=== PATIENT | male | born 1995 | race Caucasian/White ===

== ENCOUNTER 2016-09-27 18:59 | Emergency (ER) | payer BC ==
[2016-09-27 19:56] VITALS: BP 146/81
[2016-09-27] MEDS ORDERED: Acyclovir CAP* 200 MG PO ONE ×2 (21:04→21:08)
[2016-09-27] MEDS ORDERED: predniSONE TAB* 20 MG PO ONE (21:04)
--- NOTE | 2016-09-27 21:15 | UC ---
UC General HPI - HPI Summary HPI Summary: onset several days of burning sensation right side of his tongue. Tonight, developed some odd sensation in his jaw, with the realization that he cannot lift his right eyebrow and has mild facial droop. Has mild headache and low grade fever. - History of Current Complaint Chief Complaint: UCDentalProblem Stated Complaint: JAW PAIN Time Seen by Provider: 09/27/16 20:38 Hx Obtained From: Patient, Family/Print Buyer - here with his girlfriend. Onset/Duration: Gradual Onset, Lasting Hours - approximately 6 Onset Severity: Moderate Current Severity: Moderate Associated Signs & Symptoms: Positive: Headache - Allergy/Home Medications Allergies/Adverse Reactions: Allergies Allergy/AdvReac Type Severity Reaction Status Date / Time Amoxicillin Allergy Unknown Unknown Verified 12/18/15 14:28 Reaction Details Cats Allergy Eyes Uncoded 09/27/16 19:48 Itchy/Swollen/Red/Watery seasonal allergies Allergy Eyes Uncoded 12/18/15 14:28 Itchy/Swollen/Red/Watery Home Medications: Home Medications Naproxen [Naproxen 500 MG TABS] 2 tab PO Q12HR PRN 09/27/16 [History Confirmed 09/27/16] PMH/Surg Hx/FS Hx/Imm Hx Endocrine History Of: Reports: Thyroid Disease Cardiovascular History Of: Denies: Pacemaker/ICD Respiratory History Of: Reports: Asthma Psychological History Of: Reports: Anxiety - long history of anxiety disorder, uses occasional alprazolam - Surgical History Surgical History: Yes Surgery Procedure, Year, and Place: left hip impingement 01/30/13. MAY 2015 HIP SURGERY-LEFT - Family History Known Family History: Positive: None - Social History Occupation: Employed Full-time Lives: Alone Alcohol Use: Weekly Alcohol Amount: 3 days a week Substance Use Type: None Smoking Status (MU): Never Smoked Tobacco Review of Systems Constitutional: Negative Skin: Negative Eyes: Negative ENT: Negative Respiratory: Negative Cardiovascular: Negative Gastrointestinal: Negative Genitourinary: Negative Motor: Negative Neurovascular: Negative Musculoskeletal: Negative Neurological: Headache, Other - facial weakness. Psychological: Negative All Other Systems Reviewed And Are Negative: Yes Physical Exam Triage Information Reviewed: Yes Appearance: Well-Appearing, Thin - anxious. Vital Signs: Initial Vital Signs Temp 99.8 F 09/27/16 19:50 Pulse 98 09/27/16 19:50 Resp 16 09/27/16 19:50 BP 146/81 09/27/16 19:50 Pulse Ox 99 09/27/16 19:50 Eyes: Positive: Conjunctiva Clear, Other: - No lid weakness. ENT: Positive: Pharynx normal, Other: - tongue with mild erythema lateral border. Dental Exam: Normal Neck: Positive: Supple, Nontender, No Lymphadenopathy Respiratory: Positive: Lungs clear, Normal breath sounds Cardiovascular: Positive: RRR, No Murmur Neurological: Positive: Alert, Muscle Tone Normal, Other: - no pronator drift. Normal strength, normal gait. Cannot raise right eyebrow, very mild loss of nasolabial fold. Psychological: Positive: Other: - anxiety discussed. He admits to struggling with this and "freaks out". Skin Exam: Normal Course/Dx - Course Course Of Treatment: prednisone and antiviral for treatment of Anthony's palsy. - Differential Dx - Multi-Symptom Differential Diagnoses: Other - Anthony's palsy Provider Diagnoses: Anthony palsy Discharge - Discharge Plan Condition: Stable Disposition: HOME Prescriptions: Prednisone 2 tab PO BID #26 tab Valacyclovir HCl [Valtrex] 500 mg PO BID #10 tab Patient Education Materials: Anthony Palsy (ED) Additional Instructions: As discussed, early treatment with steroids and antivirals can fully reverse the muscle weakness. I would like you to have a re-assessment with your primary care tomorrow or Saturday in order to confirm that you are improving, and decide if additional assessment is needed.
== END 2016-09-27 21:28 | disposition home or self-care (01) ==
LOC: UCCORT 18:59
DX: G51.0 Bell's palsy (principal); R51 Headache; Z88.1 Allergy status to other antibiotic agents
CPT/HCPCS: 99213; A9270-GY; G0463; J7512

== ENCOUNTER 2017-07-06 16:23 | Emergency (ER) | payer BC ==
--- NOTE | 2017-07-06 17:09 | UC ---
Throat Pain/Nasal Christopher HPI - HPI Summary HPI Summary: 22 year old male presents with sinus pressure and congestion. - History of Current Complaint Stated Complaint: SINUS Time Seen by Provider: 07/06/17 17:08 Hx Obtained From: Patient Onset/Duration: Sudden Onset Severity: Moderate Pain Scale Used: 0-10 Numeric - 5 Cough: Nonproductive Associated Signs & Symptoms: Positive: Dysphagia - Allergies/Home Medications Allergies/Adverse Reactions: Allergies Allergy/AdvReac Type Severity Reaction Status Date / Time Amoxicillin Allergy Unknown Unknown Verified 07/06/17 17:14 Reaction Details Cats Allergy Eyes Uncoded 07/06/17 17:14 Itchy/Swollen/Red/Watery seasonal allergies Allergy Eyes Uncoded 07/06/17 17:14 Itchy/Swollen/Red/Watery Home Medications: Home Medications Phenylephrine W/ Acetaminophen [Sinus Pressure/Pain/Adult 5-325 mg] 2 tab PO Q4HR PRN 07/06/17 [History Confirmed 07/06/17] Valacyclovir HCl [Valtrex] 500 mg PO BID PRN 07/06/17 [History Confirmed ] PMH/Surg Hx/FS Hx/Imm Hx Previously Healthy: Yes - Surgical History Surgical History: Yes Surgery Procedure, Year, and Place: left hip impingement 01/30/13. MAY 2015 HIP SURGERY-LEFT - Family History Known Family History: Positive: None - Social History Alcohol Use: Weekly Alcohol Amount: 3 days a week Substance Use Type: None Smoking Status (MU): Never Smoked Tobacco Review of Systems Constitutional: Negative Skin: Negative Eyes: Negative ENT: Nasal Discharge, Sinus Congestion, Sinus Pain/Tenderness Respiratory: Cough Cardiovascular: Negative Gastrointestinal: Negative Genitourinary: Negative Motor: Negative Neurovascular: Negative Musculoskeletal: Negative Neurological: Negative Psychological: Negative All Other Systems Reviewed And Are Negative: Yes Physical Exam Triage Information Reviewed: Yes Vital Signs Reviewed: Yes Eye Exam: Normal ENT: Positive: Pharyngeal erythema, Nasal congestion, Nasal drainage, Sinus tenderness Dental Exam: Normal Neck exam: Normal Neck: Positive: 1 Respiratory Exam: Normal Cardiovascular Exam: Normal Abdominal Exam: Normal Musculoskeletal Exam: Normal Neurological Exam: Normal Psychological Exam: Normal Skin Exam: Normal Throat Pain/Nasal Course/Dx - Differential Dx/Diagnosis Provider Diagnoses: sinusitis Discharge - Discharge Plan Condition: Stable Disposition: HOME Prescriptions: Azithromyxin GHAZALA (NF) [Z-Ghazala (Zithromax) 250 mg tabs #6] 2 tab PO .TODAY, THEN 1 DAILY #6 tab Methylprednisolone [Medrol Dosepak 4 MG*] 4 mg PO .SEE GHAZALA INSTRUCTION #21 tab Patient Education Materials: Sinusitis (ED) Referrals: Leila Lopez PA [Primary Care Provider] -
[2017-07-06 17:14] VITALS: BP 131/80
== END 2017-07-06 17:40 | disposition home or self-care (01) ==
LOC: UCCORT 16:23
DX: J32.9 Chronic sinusitis, unspecified (principal); Z88.0 Allergy status to penicillin; Z91.048 Other nonmedicinal substance allergy status
CPT/HCPCS: 99212; G0463

== ENCOUNTER 2017-08-02 17:19 | Emergency (ER) | payer BC | END 2017-08-02 18:09 | disposition left against medical advice (07) | LOC: UCCORT 17:19 | DX: J02.9 Acute pharyngitis, unspecified (principal); Z53.21 Procedure and treatment not carried out due to patient leaving prior to being seen by health care provider ==

== ENCOUNTER 2019-04-06 14:20 | Emergency (ER) | payer BC ==
[2019-04-06 15:30] VITALS: BP 140/82
--- NOTE | 2019-04-06 16:10 | UC ---
General HPI - HPI Summary HPI Summary: 24-year-old male comes in with chief complaint of lesions on his tongue. A week ago he noticed something on the left side of his tongue is swollen its tender. Then noticed some the tip of his tongue and his activities tongue feels numb. Similar lesion to the left sided lesion on the right side of his tongue. 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 Normally he gets an ulceration on his upper lip. Has had a sore throat. No fevers no chills feels well otherwise. 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 Patient noticed some redness and swelling on the right third MCP. It's tender to palpation. No decreased range of motion. - History of Current Complaint Chief Complaint: UCSkin Stated Complaint: TONGUE COMPLAINT Time Seen by Provider: 04/06/19 15:46 Pain Intensity: 3 - Allergy/Home Medications Allergies/Adverse Reactions: Allergies Allergy/AdvReac Type Severity Reaction Status Date / Time amoxicillin Allergy Hives Verified 04/06/19 15:32 Cats Allergy Eyes Uncoded 07/06/17 17:14 Itchy/Swollen/Red/Watery seasonal allergies Allergy Eyes Uncoded 07/06/17 17:14 Itchy/Swollen/Red/Watery Home Medications: Home Medications Albuterol HFA INHALER* [Ventolin HFA Inhaler*] 2 puff INH Q6H PRN 04/06/19 [ History Confirmed 04/06/19] Fexofenadine (NF) [Daya (NF)] 60 mg PO DAILY 04/06/19 [History Confirmed 01/16] Valacyclovir HCl [Valacyclovir] 500 mg PO DAILY 04/06/19 [History Confirmed 01/16] PMH/Surg Hx/FS Hx/Imm Hx Previously Healthy: Yes - HSV - Surgical History Surgical History: Yes Surgery Procedure, Year, and Place: left hip impingement 01/30/13. MAY 2015 HIP SURGERY-LEFT - Family History Known Family History: Positive: None - Social History Alcohol Use: Weekly Alcohol Amount: 3 days a week Substance Use Type: None Smoking Status (MU): Never Smoked Tobacco - Immunization History Most Recent Influenza Vaccination: 05/2017 Review of Systems All Other Systems Reviewed And Are Negative: Yes Constitutional: Positive: Negative Skin: Positive: Other - SEE HPI Eyes: Positive: Negative ENT: Positive: Sore Throat Respiratory: Positive: Negative Cardiovascular: Positive: Negative Gastrointestinal: Positive: Negative Motor: Positive: Negative Neurovascular: Positive: Negative Musculoskeletal: Positive: Other: - SEE HPI Neurological: Positive: Negative Psychological: Positive: Negative Is Patient Immunocompromised?: No Physical Exam Triage Information Reviewed: Yes Appearance: Well-Appearing, No Pain Distress Vital Signs: Initial Vital Signs Temp 98.2 F 04/06/19 15:27 Pulse 108 04/06/19 15:27 Resp 20 04/06/19 15:27 BP 140/82 04/06/19 15:27 Pulse Ox 100 04/06/19 15:27 Vital Signs Reviewed: Yes Eye Exam: Normal Eyes: Positive: Conjunctiva Clear ENT: Positive: Other - Tonsils are 2+ bilaterally they're symmetric. Patient has ulcerations on the lateral aspects of his tongue which have an erythematous base. Neck: Positive: Supple, No Lymphadenopathy Respiratory: Positive: Lungs clear, Normal breath sounds, No respiratory distress Cardiovascular: Positive: RRR Musculoskeletal: Positive: Strength Intact, ROM Intact Neurological: Positive: Alert Psychological: Positive: Age Appropriate Behavior Skin: Positive: Other - On the right third MCP. There is some erythema that's mildly tender to palpation appears potentially to have some fluctuance. Finger has full range of motion full-strength normal sensation normal capillary refill. Course/Dx - Course Course Of Treatment: The lesions on the tongue we'll treat by increasing the dosing of the valacyclovir. Also patient reports that he has been drinking alcohol every night for at least 2 weeks. I recommended decreasing alcohol intake and taking multiple vitamins to include B vitamins. Patient's from a with Dr. Isaacs he would like to follow-up with him for ENT. For the right knuckles potential for superficial infection. Patient noted to have an allergy to amoxicillin therefore we'll treat with doxycycline. Is given a follow-up with orthopedics if not completely improved. - Diagnoses Provider Diagnosis: Tongue lesion, Infection of hand Discharge ED - Sign-Out/Discharge Documenting (check all that apply): Patient Departure All imaging exams completed and their final reports reviewed: No Studies - Discharge Plan Condition: Stable Disposition: HOME Prescriptions: DOXYcycline CAP(*) [DOXYcycline 100MG CAP(*)] 100 mg PO BID #20 cap Patient Education Materials: Oral Herpes Simplex Virus Infections (ED), Abscess (ED) Referrals: Leila Lopez PA [Primary Care Provider] - Simeon Isaacs MD [Medical Doctor] - Cheikh Chilel MD [Medical Doctor] - Additional Instructions: FOLLOW UP WITH DR ISAACS, ENT, FOR YOUR TONGUE LESIONS. FOLLOW UP WITH ORTHOPEDICS, DR CHILEL, FOR YOUR HAND PAIN IF NOT COMPLETELY IMPROVED. TAKE BOTH MULTIPLE VITAMINS AND B VITAMINS. DECREASE ALCOHOL INTAKE. GET REEVALUATED SOONER IF NOT IMPROVING OR YOUR CONDITION WORSENS OR ANY QUESTIONS OR CONCERNS - Billing Disposition and Condition Condition: STABLE Disposition: Home
== END 2019-04-06 16:37 | disposition home or self-care (01) ==
LOC: UCCORT 14:20
DX: K14.8 Other diseases of tongue (principal); L08.89 Other specified local infections of the skin and subcutaneous tissue; B00.9 Herpesviral infection, unspecified; K13.0 Diseases of lips; J02.9 Acute pharyngitis, unspecified; Z91.09 Other allergy status, other than to drugs and biological substances; Z88.0 Allergy status to penicillin; Z79.899 Other long term (current) drug therapy
CPT/HCPCS: 87651; 99212; G0463